=== PATIENT | male | born 2000 | race Caucasian/White ===

== ENCOUNTER 2024-10-27 22:22 | Emergency (ER) | payer OTHER, SELFPAY ==
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
[2024-10-27 22:24] VITALS: BP 172/100; PULSE 106; RESP 20; TEMP 36.7; O2SAT 99
--- NOTE | 2024-10-27 23:20 | ED_ITS ---
HPI - Extremity Injury (Lower) General Chief Complaint: Extremity Injury, Lower Stated Complaint: LLE INJURY S/P BEING STOMPED ON BY A BULL Source: patient Mode of arrival: EMS Limitations: no limitations History of Present Illness HPI Narrative: Patient is a 24-year-old male who presents the ED via EMS with report of left calf pain. Patient reports he was at a [facility] and was stepped on by a bull on his left calf. Complains of severe pain to his left calf. Worse with any movement. Has been unable to ambulate. Denies any other injuries from the incident. Denies head injury or LOC. Denies chest or abdominal pain. Denies numbness. Related Data Allergies Allergy/AdvReac Type Severity Reaction Status Date / Time prednisone Allergy Severe Unknown Verified 10/28/24 00:11 nickel Allergy Unknown Unknown Verified 10/28/24 00:11 Review of Systems 2 Review of Systems: All systems reviewed & are unremarkable except as noted in HPI. All systems reviewed & are unremarkable except as noted in HPI and below Exam 2 Narrative: GENERAL: Mildly uncomfortable appearing, obese with BMI of 33.3, non-toxic, in no acute distress. HEAD: Normocephalic, atraumatic. RESPIRATORY: Airway patent, respirations nonlabored. CARDIOVASCULAR: Regular rate and rhythm. DP / PT pulses are strong and easily palpable. MUSCULOSKELETAL: Moves all extremities. No gross deformities. Decreased range of motion of left ankle dorsiflexion due to pain, but patient is able to perform the testing. Contusion/bruising/swelling with very minor superficial abrasions to left medial calf with significant focal tenderness. Compartments are soft. Negative Camejo sign. Achilles tendon is intact. Minimal tenderness along proximal aspect of Achilles tendon. Sensation is intact throughout left lower extremity. Normal temperature and color of foot, ankle, calf, lower extremity. Capillary refill intact SKIN: Warm, dry, normal color. NEURO: A&O X3. Speech clear. No ataxic movements. PSYCHIATRIC: Appropriate mood and affect. Normal interaction. Course Vital Signs Vital signs: Vital Signs Temperature 98.1 F 10/27/24 22:24 Pulse Rate 106 H 10/27/24 22:24 Respiratory Rate 20 10/27/24 22:24 Blood Pressure 172/100 H 10/27/24 22:24 Pulse Oximetry 99 10/27/24 22:24 Oxygen Delivery Room Air 10/27/24 22:24 Temperature 98.1 F 10/27/24 22:24 Pulse Rate 91 10/28/24 02:15 Respiratory Rate 18 10/28/24 02:15 Blood Pressure 150/88 H 10/28/24 02:15 Pulse Oximetry 100 10/28/24 02:15 Oxygen Delivery Room Air 10/27/24 22:24 MDM - Extremity Injury (Lower) MDM Narrative Medical decision making narrative: Patient presented to calf pain s/p injury from bull stepping on calf. No other injuries. Vital signs are stable upon arrival. Patient is neurovascularly intact. No signs of neurologic or vascular compromise on physical examination. He has very strong pedal pulses. There is normal temperature, color, and sensation of leg. Compartments are soft without signs of compartment syndrome. Calf is very bruised and focally tender, but the compartments are not taut or firm. Achilles tendon is intact. CTA of LLE was obtained to r/o actively bleeding hematoma vs fx. CTA without evidence of active bleeding or fracture. Did comment that the distal-most peroneal artery was not well visualized. It could be occlusion verses artifact of contrast phase. I have very low suspicion for arterial occlusion at this time. Patient has excellent pulses. Again, normal color, temperature, sensation of left lower extremity. He does not have any footdrop. Does not otherwise have any significant RFs for atherosclerotic disease. Exam is most consistent with significant medial calf contusion/strain. Patient is felt to be stable for discharge home and further outpatient management and treatment. Placed in TRAN bandage, given crutches. Will prescribe pain medication for home. Will refer to orthopedics for further evaluation if needed. Discussed rice therapy and strict return precautions. Patient voiced understanding. Discharged in stable condition. Medical Records Attestation: I reviewed the patient's medical records. Lab Data Attestation: I reviewed the patient's lab results. 10/27/24 23:48 10/27/24 23:48 Labs: Lab Results 10/27/24 Range/Units 23:48 WBC 10.7 H (4.5-10.0) K/mm3 RBC 5.08 (4.6-6.20) M/mm3 Hgb 16.0 (14.0-18.0) g/dL Hct 45.7 (42.0-52.0) % MCV 90.0 (80-100) fl MCH 31.5 (26-34) pg MCHC 35.0 (32-36) g/dl RDW 13.1 (11.5-14.5) % Plt Count 264 (150-375) k/mm3 MPV 9.2 (7.4-10.4) fl Immature Gran % (Auto) 0.7 H (0-0.5) % Neut % (Auto) 58.1 (45.5-73.1) % Lymph % (Auto) 27.8 (18.3-44.2) % [place] % (Auto) 9.6 H (2.6-8.5) % Eos % (Auto) 2.6 (0-4.4) % Baso % (Auto) 1.2 (0.2-1.2) % Lymph # (Auto) 2.96 (0.9-3.2) K/mm3 [place] # (Auto) 1.0 H (0.1-0.6) K/mm3 Eos # (Auto) 0.3 (0-0.3) K/mm3 Baso # (Auto) 0.1 (0.0-0.1) K/mm3 Abs Immat Gran (auto) 0.07 H (0.00-0.031) K/mm3 Absolute Neuts (auto) 6.2 (1.3-6.7) K/mm3 Absolute Nucleated RBC 0.000 (0.0-0.012) K/mm3 Nucleated RBC % 0.0 (0.0-0.2) % PT 13.1 (11.1-14.7) Seconds INR 1.0 APTT 26.1 (22.3-36.8) Seconds Sodium 135 L (137-145) mmol/L Potassium 3.9 (3.4-5.0) mmol/L Chloride 99 (98-107) mmol/L Carbon Dioxide 26 (22-30) mmol/L Anion Gap 10 (4-12) mmol/L BUN 14 (9-20) mg/dL Creatinine 0.92 (0.7-1.3) mg/dL Estim Creat Clear Calc 136 ml/min Estimated GFR > 60 (59 - ) Glucose 97 (65-110) mg/dL Calcium 9.4 (8.4-10.2) mg/dL Imaging Data Attestation: I personally reviewed and interpreted this imaging study as follows: Radiologist's impression: STAT RAD CTA LLE: Impression: Distal most peroneal artery is not visualized (series 3, images [id number]). This could represent occlusion or artifact of contrast phase. Left lower extremity arteries appear otherwise normal. No active bleeding or extravasation within the soft tissues of lower extremity. No acute fractures. No incidental findings. Discharge Plan Discharge Clinical Impression: Contusion of left calf, Injury caused by animal Patient Disposition: Home Condition: Stable Instructions: Antibiotic Form, Muscle Strain (ED), P.R.I.C.E. Treatment (ED), Hematoma (ED) Additional Instructions: You are going to be very sore for the next several days to weeks. Use crutches for assistance with ambulation. Recommend frequent icing to calf, elevation of leg. Recommend Tylenol and ibuprofen around the clock as needed for pain. You may take up to 600 mg of ibuprofen and 1000 mg of Tylenol every 6 hours. [place] as needed for more severe pain. This does also contain Tylenol, so use caution with dosing. Recommend follow-up with orthopedics for further evaluation if needed. Return to the ED for new or worsening concerns, severe pain or swelling in legs, decreased sensation throughout leg, color or temperature changes throughout your leg, or any other symptoms of concern. Patient Language: Guyanese Prescriptions: New hydrocodone-acetaminophen 5-325 mg tablet 1 tablet PO Q6H PRN (Reason: pain) Qty: 10 0RF Follow-up/Referrals: Rohit Michaels MD [Physician] - (ORTHOPEDICS) UNKNOWN,DOCTOR [Primary Care Provider] - Time of Disposition: 01:50
--- OUTSIDE RECORDS SUMMARY | 2024-10-27 23:32 | XMS_ITS | Clinical Summary ---
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 Name Role Phone Identified, No Provider Primary Care Provider Un available Allergies Active Allergy Reactions Criticality Noted Date Comments Nickel Anaphylaxis High 10/01/2024 Encounters Date Type Department Care Team Description 10/01/2024 7:50 AM CDT - 10/01/2024 10:13 AM CDT Emergency [facility] Emergency Department [address] [place] [address] Toi Pedroza MD Foreign body of right eye, initial encounter (Primary Dx) Discharge Disposition: Discharged to Home or Self Care from Last 3 Months Social History Tobacco Use Types Packs/Day Years Used Date Smoking Tobacco: Never Assessed Sex and Gender Information Value Date Recorded Sex Assigned at Not on file Legal Sex Male 6:47 PM [employer] Gender Identity Not on file Sexual Orientation Not on file Last Filed Vital Signs Vital Sign Reading Time Taken Comments Blood Pressure 155/79 10/01/2024 7:28 AM CDT Pulse 83 10/01/2024 10:11 AM CDT Temperature 36.7 C (98.1 F) 10/01/2024 7:28 AM CDT Respiratory Rate 16 10/01/2024 10:1 1 AM CDT Oxygen Saturation 99% 10/01/2024 10: 11 AM CDT Inhaled Oxygen Concentration - - Weight 105.6 kg (232 lb 12.9 oz) 10/01/2024 7:27 AM CDT Height 177.8 cm (5' 10) 10/01/2024 7:31 AM CDT Body Mass Index 33.4 10/01/2024 7:27 AM CDT Plan of Treatment Not on file Insurance [employer] Care Teams Molding Machine Tender Relationship Specialty Start Date End Date Identified, No Provider PCP - General 10/01/24
--- OUTSIDE RECORDS SUMMARY | 2024-10-27 23:32 | XMS_ITS | Continuity of Care Document ---
Author Organization [facility] Address [address] [place] [id number] Phone Care Team Providers Care Muck Boss Name Role Phone Ramila YORK, Clarice Unavailable Unavailable Allergies, Adverse Reactions, Alerts Substance Reaction Status Criticality nickel Hives / Skin Rash(severe) Active Lo w Medications Medication Instructions Dosage Effective Dates (start - stop) Status Comments ofloxacin 0.3 % eye drops Instill 1 drop QID OD until advised otherwise. - Active Procedures Procedure Date REMOVE FOREIGN BODY CORNEAL, EMBEDDED Ju EYE EXAM NEW PATIENT Advance Directives Directive Yes / No Effective Date File Name No Information Encounters Encounter Description Practice Location Reason(s) For Visit Diagnoses Date Provider Providers Copied on Encounter [facility], [facility], [address] [place] [address], [id number], [place] tel:[phone] [facility] FBS OD (chief complaint) Foreign body in cornea, right eye, initial encounter Ramila Oneil. [address] [place] [address], [id number], [place]. tel:[phone] Referring Provider: Clarice Chakraborty, [address] [place] [address], [id number]. tel:[phone] Family History Family Member Type Diagnosis Age At Onset Problem No family history of Diabete s mellitus Problem No family history of Hyperte nsion Problem No family history of Catarac ts Problem No family history of Glaucom a Problem No family history of Macular degeneration Payers Payer name Insurance type Covered green party ID Authoriza tion(s) Hernandez [facility] [id number] Social History Type Description Quantity Date Captured Comments Alcohol Use Details Unknown Caffeine Use Details Unknown Tobacco Use Status User of moist powder ed tobacco Smoking Status Unknown if ever smoked Non-Smoking Tobacco Use Details Smokeless: No Details Available Smokeless: No Details Available Sex Male Chief Complaint And Reason For Visit From encounter dated '10/01/2024 15:15'. FBS OD (chief complaint). Description: The 24 year old patient presents for FBS OD referred by [facility] ER. Pt reports that on 09/28/24 OD started feeling painful and red. Pt reports the next morning OD became extremely swollen and painful. Pt went to [facility] and received a numb gtts today but pain is still extreme OD that it was hard to sleep." Pt reports that the ER said they saw something like metal in OD and referred him here. Pt reports that vision OU is good, stable and constant [facility]. Pt is not usingany eye meds. Reason For Referral Reason For Referral No Information Plan Of Treatment Date Type Action Status Goal Tobacco cessation counseling completed History Of Present Illness Encounter Date Complaint History Of Prese nt Illness FBS OD The 24 year old patient presents for FBS OD referred by [facility]. Pt reports that on 09/28/24 OD started feeling painful and red. Pt reports the next morning OD became "extremely swollen and painful. Pt went to [facility] and received a numb gtts today but pain is still extreme OD that it was hard to sleep. Pt reports that the ER said "they saw something like metal in OD and referred him here. Pt reports that vision OU is good, stable and constant D & N sc. Pt is not using any eye meds. Functional Status Date Functional Assessmen t No Information Instructions Date Instruction Additional Infor jc Impression/Plan Assessments Type Assessment Date assessment Foreign body in cornea, right ey e, initial encounter Patient Care Teams Name Effective Dates (start - stop) Status Members No Information
--- OUTSIDE RECORDS SUMMARY | 2024-10-27 23:32 | XMS_ITS | Clinical Summary ---
Author Organization [facility] Address [address] [place] [address] Phone Care Team Providers Care Home Economics Expert Name Role Phone Provider, None Primary Care Provider Unavailabl e Allergies Active Allergy Reactions Criticality Noted Date Comments Prednisone Other (see Comments) 08/22/2024 Pt states after 1 day of taking prednisone it makes him not be able to think right has happened before can't concentrate Medications diphenhydrAMINE (BENADRYL) 25 MG Capsule Take 1-2 Capsules by mouth every 6 hours as needed for Itching or Other (facial itching/swelling /hives). 20 Capsule 4 Active Additional Information Patient not taking.Reported on 08/21/2024 cyclobenzaprine (FLEXERIL) 10 MG Tablet Take 1 Tablet by mouth 3 times daily as needed for Muscle spasms. 25 Tablet 5 Active ibuprofen (MOTRIN) 600 MG Tablet Take 1 Tablet by mouth every 6 hours as needed for Mild or more severe pain or Moderate or more severe pain. 30 Tablet 5 Active Active Problems Problem Noted Date Diagnosed Date Coccyx pain 10/24/2024 Sprain of right knee 08/13/2018 ADHD (attention deficit hyperactivity disorder) 04/05/2013 Encounters Date Type Department Care Team Description 10/24/2024 11:21 AM CDT - 10/24/2024 11:57 AM CDT Emergency [facility] Emergency [address] [place] [address] Coccyx pain Discharge Disposition: Discharged to home or Selfcare 10/24/2024 Travel 10/10/2024 10:49 PM CDT - 10/11/2024 1:53 AM CDT [facility] [address] [place] [address] Michael Toney MD Contusion of left lower extremity, initial encounter Discharge Disposition: Discharged to home or Selfcare 10/10/2024 Travel 09/02/2024 7:17 PM CDT - 09/02/2024 8:58 PM CDT [facility] [address] [place] [address] Adrienne Rodriguez MD Sprain of ribs Discharge Disposition: Discharged to home or Selfcare 09/02/2024 Travel 08/22/2024 Telephone [facility] [place] [facility] [address] [place] [address] Jamaal Montalvo APRN, DISTRIBUTION SPECIALIST Medication Problem 08/22/2024 [facility]phone [facility] [address] [place] [id number] Provider, None Medication Management 08/21/2024 5:10 PM CDT Urgent Care Visit [facility] [place] [facility] [address] [place] [address] Jamaal Montalvo APRN, DISTRIBUTION SPECIALIST Rhus dermatitis (Primary Dx) Discharge Disposition: Discharged to home or Selfcare 08/21/2024 Travel from Last 3 Months Immunizations Immunization Administration Dates Next Due DTAP VACCINE 10/08/2009, 7,08/14/2002,02/27,2000,2000 HIB Vaccine (PRP-T) 06/24/2010,06/01/2001,2000 Hepatitis A Vaccine 10/20/2010,01/27/2010 Hepatitis B Vaccine 06/01/2001,2000,2000 Human Papillomavirus Vaccine (HPV), quadrivalent 09/26/2012 Inactivated Polio Vaccine 10/08/2009,09/2006,06/01/2001,10/21,2000 MMR Vaccine 10/08/2009,11/01/2006,06/01/2001 Meningococcal MCV4O 01/28/2017 Meningococcal Vaccine 09/26/2012 TDAP Vaccine 09/26/2012 VFC FLU 3+ YEARS IM 04/05/2013 VFC FLU 3+ YRS PRES FREE QUAD IM 12/23/2014,02/25 VFC HPV VACCINE, QUADRIVALENT 02/22/2014, 014 Varicella Vaccine Live 10/08/2009,11/01/2006, Family History Medical History Relation Name Comments Cancer Maternal Aunt Cancer Paternal Aunt Diabetes Paternal Aunt Cancer Paternal Uncle Diabetes Paternal Uncle Relation Name Status Comments Maternal Aunt Paternal Aunt Paternal Uncle Social History Tobacco Use Types Packs/Day Years Used Date Smoking Tobacco: Some Days Cigarettes Smokeless Tobacco: Former Chew Tobacco Cessation:Ready to Q uit: Not Asked; Counseling Given: Not Answered Comments:would like to quit Alcohol Use Standard Drinks/Week Comments Yes 0 (1 standard drink = 0.6 oz pur e alcohol) daily beer PHQ-2 Answer Date Recorded PHQ-2 Score 21 02/28/2019 Sexually Active Control Partners Comments Not Currently Sex and Gender Information Value Date Recorded Sex Assigned at Male 10/10/2024 11:01 PM CDT 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 Gender Identity Male 10/10/2024 11:01 PM CDT Sexual Orientation Not on file Last Filed Vital Signs Vital Sign Reading Time Taken Comments Blood Pressure 131/90 10/24/2024 11:13 AM CDT Pulse 90 10/24/2024 11:13 AM CDT Temperature 37 C (98.6 F) 10/24/2024 11:13 AM CDT Respiratory Rate 18 10/24/2024 11:13 AM CDT Oxygen Saturation 98% 10/24/2024 11:13 AM CDT Inhaled Oxygen Concentration - - Weight 104.3 kg (230 lb) 10/24/2024 11:13 AM CDT Height 177.8 cm (5' 10) 10/24/2024 11:13 AM CDT Body Mass Index 33 10/24/2024 11:13 AM CDT Plan of Treatment Health Maintenance Due Date Last Done Comments Hepatitis C Virus (HCV) Screening 2000 Pneumococcal Immunization Combined (1 of 2 - PCV) 2019 DTaP/Tdap/Td Immunization (7 - Td or Tdap) 09/26/2022 09/26/2012, 10/08/2009, 11/01/2006, Additional history exists SARS-COV-2 Immunization ( season) 2023 Influenza Immunization (#1) 11/26/202411/27, 03/15/2014, 04/05/2013 Respiratory Syncytial Virus (RSV) Immunization (Adult) (1 - 1-dose 75+ series) 2075 Hepatitis B Immunization Completed 002, 2000, 2000 Human Papillomavirus (HPV) Immunization Completed 02/22/2014, 10/23/2013, 09/26/2012 Meningococcal Immunization (ACWY) Completed 01/28/2017, 09/26/2012 Rotavirus Immunization Aged Out No lo nger eligible based on patient's age to complete this topic Medical Devices Implanted Type Area Bus Matron Device Identifier Shelf Expiration Date Model / Serial / Lot One-Third Tubular Plate 7h - [id number] Implanted:Qty: 1 on 07/30/2013 by Dickson Rios DO at [facility] IMPLANT Left: Clavicle [employer] [id number] [id number] / / N/A Screw Cortical Self-Tapping Small Hex 2. - [id number] Implanted:Qty: 5 on 07/30/2013 by Dickson Rios DO at [facility] IMPLANT [employer] [id number] 2 / NA Screw Bone Cortical Self Tapping Small H - [id number] Implanted:Qty: 1 on 07/30/2013 by [facility] DO at [facility] IMPLANT Left: Clavicle [employer] [id number] / / NA Procedures Procedure Name Priority Date/Time Associated Diagnosis Comments XR ANKLE 3 OR MORE VIEWS LEFT STAT 10/11/2024 12:07 AM CDT XR HIP 2-3 VIEWS W/PELVIS UNILATERAL LEFT STAT 10/11/2024 12:06 AM CDT XR TIBIA & FIBULA LEFT STAT 10/11/2024 12:06 AM CDT XR KNEE MINIMUM 4 VIEWS LEFT STAT 10/11/2024 12:[address] HEAD OR BRAIN WO CONTRAST Stat with Interpretation 09/02/2024 7:[address] CERVICAL SPINE WO/ CONTRAST Stat with Interpretation 09/02/2024 7:[address] CHEST ABDOMEN AND PELVIS W CONTRAST Stat with Interpretation 09/02/2024 7:55 PM CDT CRITICAL CARE STAT 09/02/2024 7:29 PM CDT CBC WITH AUTO DIFFERENTIAL STAT 09/02/2024 7:27 PM CDT CMP (COMPREHENSIVE METABOLIC PANEL) STAT 09/02/2024 7:27 PM CDT COMPLETE BLOOD COUNT (CBC) WITH DIFF STAT 09/02/2024 7:27 PM CDT from Last 3 Months Results * XR ANKLE 3 OR MORE VIEWS LEFT (10/11/2024 12:07 AM CDT) Anatomical Region Laterality Modality LOWER EXTREMITY, ankle Left Digital R adiography 10/10/2024 11:4 7 PM CDT Impressions 10/11/2024 6:53 AM CDT IMPRESSION: No acute osseous findings. The preliminary report and any related communication were provided by [facility] After Hours service, as documented in the medical record. Narrative 10/11/2024 6:53 AM CDT DICTATING PHYSICIAN: Sid Ely M.D., [facility] EXAM: XR HIP 2-3 VIEWS W/PELVIS UNILATERAL LEFT, XR ANKLE 3 OR MORE VIEWS LEFT, XR TIBIA & FIBULA LEFT, XR KNEE MINIMUM 4 VIEWS LEFT 10/10/2024 11:46 PM Patient : 2000 Age: 24 years Gender: Male Number of images: 13 INDICATION: Left leg stepped on by a bull COMPARISON: None FINDINGS: The bones appear to be in anatomic alignment. No fracture is identified. No dislocation is seen. Procedure Note Sid Ramirez MD - 10/11/2024 DICTATING PHYSICIAN: iSd Ely M.D., [facility] EXAM: XR HIP 2-3 VIEWS W/PELVIS UNILATERAL LEFT, XR ANKLE 3 OR MORE VIEWSLEFT, XR TIBIA & FIBULA LEFT, XR KNEE MINIMUM 4 VIEWS LEFT 10/10/2024 11:46PM Patient : 2000 Age: 24 years Gender: Male Number of images: 13 INDICATION: Left leg stepped on by a bull COMPARISON: None FINDINGS: The bones appear to be in anatomic alignment. No fracture is identified. No dislocation is seen. IMPRESSION: No acute osseous findings. The preliminary report and any related communication [facility], as documented in the medical record. Michael Toney MD IM DIAGNOSTIC ORDERABLES Final Result * XR HIP 2-3 VIEWS W/PELVIS UNILATERAL LEFT (10/11/2024 12:06 AM CDT) Anatomical Region Laterality Modality LOWER EXTREMITY, hip, Pelvis Left Dig ital Radiography 10/10/2024 11:4 6 PM CDT Impressions 10/11/2024 6:53 AM CDT IMPRESSION: No acute osseous findings. The preliminary report and any related communication were provided by [facility] After Hours service, as documented in the medical record. Narrative 10/11/2024 6:53 AM CDT DICTATING PHYSICIAN: Sid Ely M.D., [facility] EXAM: XR HIP 2-3 VIEWS W/PELVIS UNILATERAL LEFT, XR ANKLE 3 OR MORE VIEWS LEFT, XR TIBIA & FIBULA LEFT, XR KNEE MINIMUM 4 VIEWS LEFT 10/10/2024 11:46 PM Patient : 2000 Age: 24 years Gender: Male Number of images: 13 INDICATION: Left leg stepped on by a bull COMPARISON: None FINDINGS: The bones appear to be in anatomic alignment. No fracture is identified. No dislocation is seen. Procedure Note Sid Ramirez MD - 10/11/2024 DICTATING PHYSICIAN: Sid [facility]ly M.D., [facility] EXAM: XR HIP 2-3 VIEWS W/PELVIS UNILATERAL LEFT, XR ANKLE 3 OR MORE VIEWSLEFT, XR TIBIA & FIBULA LEFT, XR KNEE MINIMUM 4 VIEWS LEFT 10/10/2024 11:46PM Patient : 2000 Age: 24 years Gender: Male Number of images: 13 INDICATION: Left leg stepped on by a bull COMPARISON: None FINDINGS: The bones appear to be in anatomic alignment. No fracture is identified. No dislocation is seen. IMPRESSION: No acute osseous findings. The preliminary report and any related communication [facility], as documented in the medical record. Michael Toney MD IMG DIAGNOSTIC ORDERABLES Final Result * XR TIBIA & FIBULA LEFT (10/11/2024 12:06 AM CDT) Anatomical Region Laterality Modality LOWER EXTREMITY, leg Left Digital Rad iography 10/10/2024 11:4 6 PM CDT Impressions 10/11/2024 6:53 AM CDT IMPRESSION: No acute osseous findings. The preliminary report and any related communication were [facility], as documented in the medical record. Narrative 10/11/2024 6:53 AM CDT DICTATING PHYSICIAN: Sid Ely M.D., [facility] EXAM: XR HIP 2-3 VIEWS W/PELVIS UNILATERAL LEFT, XR ANKLE 3 OR MORE VIEWS LEFT, XR TIBIA & FIBULA LEFT, XR KNEE MINIMUM 4 VIEWS LEFT 10/10/2024 11:46 PM Patient : 2000 Age: 24 years Gender: Male Number of images: 13 INDICATION: Left leg stepped on by a bull COMPARISON: None FINDINGS: The bones appear to be in anatomic alignment. No fracture is identified. No dislocation is seen. Procedure Note Sid Ramirez MD - 10/11/2024 DICTATING PHYSICIAN: Sid Ely M.D., [facility] EXAM: XR HIP 2-3 VIEWS W/PELVIS UNILATERAL LEFT, XR ANKLE 3 OR MORE VIEWSLEFT, XR TIBIA & FIBULA LEFT, XR KNEE MINIMUM 4 VIEWS LEFT 10/10/2024 11:46PM Patient : 2000 Age: 24 years Gender: Male Number of images: 13 INDICATION: Left leg stepped on by a bull COMPARISON: None FINDINGS: The bones appear to be in anatomic alignment. No fracture is identified. No dislocation is seen. IMPRESSION: No acute osseous findings. The preliminary report and any related communication [facility], as documented in the medical record. Michael Toney MD IM DIAGNOSTIC ORDERABLES Final Result * XR KNEE MINIMUM 4 VIEWS LEFT (10/11/2024 12:05 AM CDT) Anatomical Region Laterality Modality LOWER EXTREMITY, knee Left Digital Ra diography 10/10/2024 11:4 5 PM CDT Impressions 10/11/2024 6:53 AM CDT IMPRESSION: No acute osseous findings. The preliminary report and any related communication were provided by [facility] After Hours service, as documented in the medical record. Narrative 10/11/2024 6:53 AM CDT DICTATING PHYSICIAN: Sid Ely M.D., [facility] EXAM: XR HIP 2-3 VIEWS W/PELVIS UNILATERAL LEFT, XR ANKLE 3 OR MORE VIEWS LEFT, XR TIBIA & FIBULA LEFT, XR KNEE MINIMUM 4 VIEWS LEFT 10/10/2024 11:46 PM Patient : 2000 Age: 24 years Gender: Male Number of images: 13 INDICATION: Left leg stepped on by a bull COMPARISON: None FINDINGS: The bones appear to be in anatomic alignment. No fracture is identified. No dislocation is seen. Procedure Note Sid Ramirez MD - 10/11/2024 DICTATING PHYSICIAN: Sid Ely M.D., [facility] EXAM: XR HIP 2-3 VIEWS W/PELVIS UNILATERAL LEFT, XR ANKLE 3 OR MORE VIEWSLEFT, XR TIBIA & FIBULA LEFT, XR KNEE MINIMUM 4 VIEWS LEFT 10/10/2024 11:46PM Patient : 2000 Age: 24 years Gender: Male Number of images: 13 INDICATION: Left leg stepped on by a bull COMPARISON: None FINDINGS: The bones appear to be in anatomic alignment. No fracture is identified. No dislocation is seen. IMPRESSION: No acute osseous findings. The preliminary report and any related communication [facility], as documented in the medical record. Michael Toney MD IMG DIAGNOSTIC ORDERABLES Final Result * CT HEAD OR BRAIN WO CONTRAST (09/02/2024 7:56 PM CDT) Anatomical Region Laterality Modality Head N/A Computed Tomogra phy 09/02/2024 7:35 PM CDT Impressions 09/02/2024 11:09 PM CDT IMPRESSION: CT head: 1. No CT evidence of acute intracranial abnormality. CT cervical spine: 1. No acute fracture or traumatic malalignment of the cervical spine. 2. Right mandibular second molar dental caries. Recommend nonemergent dental evaluation. The preliminary report and any related communication were provided by [facility] After Hours service through [facility], as documented in the medical record. Narrative 09/02/2024 11:09 PM CDT DICTATING PHYSICIAN: Clement Marlow M.D. EXAM: CT HEAD OR BRAIN WO CONTRAST, 09/02/2024 7:35 PM COMPARISON: CT head 09/29/2023. CT cervical spine 10/14/2018. INDICATION: Fall. Head/neck trauma. Neck pain6. PROCEDURE: CT images were obtained of the head and cervical spine without intravenous contrast. Image reconstruction in the sagittal and coronal planes was performed. Radiation dose reduction technique(s) were used. Total DLP (mGy-cm): 1491.48. FINDINGS: HEAD: Brain: The bullock-white matter differentiation appears preserved. No acute intra- axial hemorrhage. No significant mass effect. Ventricles and extra-axial spaces: The ventricles are normal in size and configuration for age. The basal cisterns are patent. No extra-axial fluid collection. Orbits: Unremarkable. Paranasal sinuses: Clear. Middle ear and mastoid air cells: Clear. Bones: No acute abnormality. Soft tissues: Unremarkable. Additional findings: None. CERVICAL SPINE: Alignment: Straightening of the normal cervical lordosis, likely positional. Bones: Vertebral body heights are preserved. No acute fracture. Segmental analysis: Intervertebral disc heights are relatively well-maintained. No significant osseous spinal canal or neural foraminal stenosis. Soft tissues: Unremarkable. Visualized chest: Unremarkable. Additional findings: Dental caries of the right mandibular second molar. Procedure Note Clement Marlow MD - 09/02/2024 DICTATING PHYSICIAN: Clement Marlow M.D. EXAM: CT HEAD OR BRAIN WO CONTRAST, 09/02/2024 7:35 PM COMPARISON: CT head 09/29/2023. CT cervical spine 10/14/2018. INDICATION: Fall. Head/neck trauma. Neck pain6. PROCEDURE: CT images were obtained of the head and cervical spine withoutintravenous contrast. Image reconstruction in the sagittal and coronalplanes was performed. Radiation dose reduction technique(s) were used.Total DLP (mGy-cm): 1491.48. FINDINGS: HEAD: Brain: The bullock-white matter differentiation appears preserved. No acuteintra- axial hemorrhage. No significant mass effect. Ventricles and extra-axial spaces: The ventricles are normal in size andconfiguration for age. The basal cisterns are patent. No extra-axial fluidcollection. Orbits: Unremarkable. Paranasal sinuses: Clear. Middle ear and mastoid air cells: Clear. Bones: No acute abnormality. Soft tissues: Unremarkable. Additional findings: None. CERVICAL SPINE: Alignment: Straightening of the normal cervical lordosis, likelypositional. Bones: Vertebral body heights are preserved. No acute fracture. Segmental analysis: Intervertebral disc heights are relativelywell-maintained. No significant osseous spinal canal or neural foraminalstenosis. Soft tissues: Unremarkable. Visualized chest: Unremarkable. Additional findings: Dental caries of the right mandibular second molar. IMPRESSION: CT head: 1. No CT evidence of acute intracranial abnormality. CT cervical spine: 1. No acute fracture or traumatic malalignment of the cervical spine. 2. Right mandibular second molar dental caries. Recommend nonemergentdental evaluation. The preliminary report and any related communication were [facility] through [facility], as documented in themedical record. Betty Triplett Dubois METER SHOP SUPERINTENDENT, DISTRIBUTION SPECIALIST IMG CT ORDERABLES Final Result * CT CERVICAL SPINE WO/ CONTRAST (09/02/2024 7:56 PM CDT) Anatomical Region Laterality Modality Spine N/A Computed Tomogra phy 09/02/2024 7:35 PM CDT Impressions 09/02/2024 11:10 PM CDT IMPRESSION: CT head: 1. No CT evidence of acute intracranial abnormality. CT cervical spine: 1. No acute fracture or traumatic malalignment of the cervical spine. 2. Right mandibular second molar dental caries. Recommend nonemergent dental evaluation. The preliminary report and any related communication were provided by [facility] After Hours service through [facility], as documented in the medical record. Narrative 09/02/2024 11:10 PM CDT DICTATING PHYSICIAN: Clement Marlow M.D. EXAMINATION: CT CERVICAL SPINE WO/ CONTRAST, 09/02/2024 7:35 PM COMPARISON: CT head 09/29/2023. CT cervical spine 10/14/2018. INDICATION: Fall. Head/neck trauma. Neck pain6. PROCEDURE: CT images were obtained of the head and cervical spine without intravenous contrast. Image reconstruction in the sagittal and coronal planes was performed. Radiation dose reduction technique(s) were used. Total DLP (mGy-cm): 1491.48. FINDINGS: HEAD: Brain: The bullock-white matter differentiation appears preserved. No acute intra- axial hemorrhage. No significant mass effect. Ventricles and extra-axial spaces: The ventricles are normal in size and configuration for age. The basal cisterns are patent. No extra-axial fluid collection. Orbits: Unremarkable. Paranasal sinuses: Clear. Middle ear and mastoid air cells: Clear. Bones: No acute abnormality. Soft tissues: Unremarkable. Additional findings: None. CERVICAL SPINE: Alignment: Straightening of the normal cervical lordosis, likely positional. Bones: Vertebral body heights are preserved. No acute fracture. Segmental analysis: Intervertebral disc heights are relatively well-maintained. No significant osseous spinal canal or neural foraminal stenosis. Soft tissues: Unremarkable. Visualized chest: Unremarkable. Additional findings: Dental caries of the right mandibular second molar. Procedure Note Clement Marlow MD - 09/02/2024 DICTATING PHYSICIAN: Clement Marlow M.D. EXAMINATION: CT CERVICAL SPINE WO/ CONTRAST, 09/02/2024 7:35 PM COMPARISON: CT head 09/29/2023. CT cervical spine 10/14/2018. INDICATION: Fall. Head/neck trauma. Neck pain6. PROCEDURE: CT images were obtained of the head and cervical spine withoutintravenous contrast. Image reconstruction in the sagittal and coronalplanes was performed. Radiation dose reduction technique(s) were used.Total DLP (mGy-cm): 1491.48. FINDINGS: HEAD: Brain: The bullock-white matter differentiation appears preserved. No acuteintra- axial hemorrhage. No significant mass effect. Ventricles and extra-axial spaces: The ventricles are normal in size andconfiguration for age. The basal cisterns are patent. No extra-axial fluidcollection. Orbits: Unremarkable. Paranasal sinuses: Clear. Middle ear and mastoid air cells: Clear. Bones: No acute abnormality. Soft tissues: Unremarkable. Additional findings: None. CERVICAL SPINE: Alignment: Straightening of the normal cervical lordosis, likelypositional. Bones: Vertebral body heights are preserved. No acute fracture. Segmental analysis: Intervertebral disc heights are relativelywell-maintained. No significant osseous spinal canal or neural foraminalstenosis. Soft tissues: Unremarkable. Visualized chest: Unremarkable. Additional findings: Dental caries of the right mandibular second molar. IMPRESSION: CT head: 1. No CT evidence of acute intracranial abnormality. CT cervical spine: 1. No acute fracture or traumatic malalignment of the cervical spine. 2. Right mandibular second molar dental caries. Recommend nonemergentdental evaluation. The preliminary report and any related communication were [facility] through [facility], as documented in themedical record. us Betty Dubois METER SHOP SUPERINTENDENT, DISTRIBUTION SPECIALIST IMG CT ORDERABLES Final Result * CT CHEST ABDOMEN AND PELVIS W CONTRAST (09/02/2024 7:55 PM CDT) Anatomical Region Laterality Modality Chest, Abdomen, Pelvis N/A Computed Tomography 09/02/2024 7:35 PM CDT Impressions 09/03/2024 10:05 AM CDT IMPRESSION: 1. No acute solid organ injury. 2. No acute fractures. 3. No pneumothorax. Narrative 09/03/2024 10:[address] CHEST ABDOMEN AND PELVIS W CONTRAST: 09/02/2024 7:35 PM DICTATING PHYSICIAN: KEITH GOFF [facility]. 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 TECHNIQUE: Multiple helical axial images were obtained through the chest, abdomen and pelvis with contrast. Multiplanar reformats were performed. Dose reduction technique(s): CT dose reduction techniques used. Exam performed using one or more of the following dose reduction techniques: Automated exposure control, adjustment MA and/or AV according to patient size, and/or use of the iterative reconstruction. IV CONTRAST TYPE AND VOLUME: Administered contrast documentation is located within the patient's electronic health record. RADIATION DOSE: DLP 3163.16 mGycm. FINDINGS: Thyroid/base of neck: No acute findings. Pulmonary Arteries: There is adequate opacification with no evidence for central pulmonary embolism. Thoracic aorta: Widely patent, normal course and caliber. Heart: The heart is grossly within normal limits. Pericardium: No fluid or thickening. Lymph nodes: No evidence for pathologic axillary, mediastinal, or hilar lymphadenopathy. Esophagus: Normal. Pleura: No pleural effusion or thickening. Lung parenchyma: The lungs are clear bilaterally with no suspicious nodule or airspace consolidation seen. ABDOMEN: Liver: No focal lesion or intrahepatic bile duct dilatation. Portal venous system is patent. Gallbladder: No evidence for wall thickening or inflammation. Spleen: Within normal limits. No evidence for splenomegaly or focal lesion. Pancreas: No focal lesion or pancreatic ductal dilatation. Adrenal glands: No focal nodule. Kidneys: No focal suspicious lesion or obstructive uropathy evident. Abdominal aorta and IVC: Abdominal aorta is normal in caliber. IVC is grossly normal. Retroperitoneum: Normal Mesentery/Peritoneum: Normal. Stomach and small bowel: Within normal limits. No evidence for obstruction. PELVIS: Free fluid: No free fluid or fluid collection. Reproductive: No acute abnormality. Bladder: Normal contour and wall thickness. Lymphadenopathy: No pathologic lymphadenopathy. Colon: Normal in course and caliber. Appendix: No acute abnormality. Skeletal structures and soft tissues: Age-appropriate degenerative changes. No suspicious osseous lytic or blastic process. No soft tissue abnormality. Left clavicle fixation plate and screws present. Procedure Note Keith Goff MD - 09/03/2024 CT CHEST ABDOMEN AND PELVIS W CONTRAST: 09/02/2024 7:35 PM DICTATING PHYSICIAN: KEITH GOFF [facility]. 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 TECHNIQUE: Multiple helical axial images were obtained through the chest, abdomen andpelvis with contrast. Multiplanar reformats were performed. Dose reduction technique(s): CT dose reduction techniques used. Examperformed using one or more of the following dose reduction techniques:Automated exposure control, adjustment MA and/or AV according to patientsize, and/or use of the iterative reconstruction. IV CONTRAST TYPE AND VOLUME: Administered contrast documentation islocated within the patient's electronic health record. RADIATION DOSE: DLP 3163.16 mGycm. FINDINGS: Thyroid/base of neck: No acute findings. Pulmonary Arteries: There is adequate opacification with no evidence forcentral pulmonary embolism. Thoracic aorta: Widely patent, normal course and caliber. Heart: The heart is grossly within normal limits. Pericardium: No fluid or thickening. Lymph nodes: No evidence for pathologic axillary, mediastinal, or hilarlymphadenopathy. Esophagus: Normal. Pleura: No pleural effusion or thickening. Lung parenchyma: The lungs are clear bilaterally with no suspicious noduleor airspace consolidation seen. ABDOMEN: Liver: No focal lesion or intrahepatic bile duct dilatation. Portal venoussystem is patent. Gallbladder: No evidence for wall thickening or inflammation. Spleen: Within normal limits. No evidence for splenomegaly or focallesion. Pancreas: No focal lesion or pancreatic ductal dilatation. Adrenal glands: No focal nodule. Kidneys: No focal suspicious lesion or obstructive uropathy evident. Abdominal aorta and IVC: Abdominal aorta is normal in caliber. IVC isgrossly normal. Retroperitoneum: Normal Mesentery/Peritoneum: Normal. Stomach and small bowel: Within normal limits. No evidence forobstruction. PELVIS: Free fluid: No free fluid or fluid collection. Reproductive: No acute abnormality. Bladder: Normal contour and wall thickness. Lymphadenopathy: No pathologic lymphadenopathy. Colon: Normal in course and caliber. Appendix: No acute abnormality. Skeletal structures and soft tissues: Age-appropriate degenerativechanges. No suspicious osseous lytic or blastic process. No soft tissueabnormality. Left clavicle fixation plate and screws present. IMPRESSION: 1. No acute solid organ injury. 2. No acute fractures. 3. No pneumothorax. Betty Dubois [employer]ER [employer]OP SUPERINTENDENT, DISTRIBUTION SPECIALIST IMG CT ORDERABLES Final Result * Critical Care (09/02/2024 7:29 PM CDT) Narrative Adrienne Rodriguez MD - 09/02/2024 7:29 PM CDT Adrienne Rodriguez MD 10/03/2024 2:42 AM Critical Care Performed by: Adrienne Rodriguez MD Authorized by: Adrienne Rodriguez MD Critical care provider statement: Critical care time (minutes): 38 Critical care time was exclusive of: Separately billable procedures and treating other patients and teaching time Critical care was necessary to treat or prevent imminent or life-threatening deterioration of the following conditions: Trauma Critical care was time spent personally by me on the following activities: Pulse oximetry, re-evaluation of patient's condition, review of old charts, ordering and review of radiographic studies, discussions with primary provider, evaluation of patient's response to treatment and examination of patient Adrienne Rodriguez MD PROCEDURE/MINOR SURGICAL OR DERABLES Final Result * (ABNORMAL) CBC with Auto Differential (09/02/2024 7:27 PM CDT) WBC 12.77(H) 4.00 - 12.00 10(3)/mcL 09/02/2024 7:33 PM CDT [facility] RBC 5.30 4.40 - 5.80 10(6)/mcL 09/02/2024 7:33 PM CDT [facility] HEMOGLOBIN (HGB) 16.9(H) 13.0 - 16.5 g/dL 09/02/2024 7:33 PM CDT [facility] HEMATOCRIT (HCT) 47.6 38.0 - 50.0 % 09/02/2024 7:33 PM CDT [facility] MCV 89.8 82.0 - 96.0 fL 09/02/2024 7:33 PM CDT [facility] MCH 31.9 26.0 - 32.0 pg 09/02/2024 7:33 PM CDT [facility] MCHC 35.5 31.0 - 36.0 g/dL 09/02/2024 7:33 PM CDT [facility] PLATELET COUNT 298 140 - 440 10(3)/mcL 09/02/2024 7:33 PM CDT [facility] RDW 12.9 11.8 - 15.5 % 09/02/2024 7:33 PM CDT [facility] MPV 9.0 8.0 - 12.6 fL 09/02/2024 7:33 PM CDT [facility] NEUTROPHILS 58.3 40.0 - 68.0 % 09/02/2024 7:33 PM CDT [facility] LYMPHOCYTES 27.3 19.0 - 49.0 % 09/02/2024 7:33 PM CDT [facility] MONOCYTES 11.3 3.0 - 13.0 % 09/02/2024 7:33 PM CDT [facility] EOSINOPHILS 2.2 0.0 - 8.0 % 09/02/2024 7:33 PM CDT [facility] BASOPHILS 0.9 0.0 - 1.0 % 09/02/2024 7:33 PM CDT [facility] ABSOLUTE NEUTROPHILS 7.45(H) 1.40 - 5.30 10(3)/mcL 09/02/2024 7:33 PM CDT [facility] ABSOLUTE LYMPHOCYTES 3.49(H) 0.90 - 3.30 10(3)/mcL 09/02/2024 7:33 PM CDT [facility] ABSOLUTE MONOCYTES 1.44(H) 0.10 - 0.90 10(3)/mcL 09/02/2024 7:33 PM CDT [facility] ABSOLUTE EOSINOPHIL 0.28 0.00 - 0.50 10(3)/mcL 09/02/2024 7:33 PM CDT [facility] ABSOLUTE BASOPHILS 0.11(H) 0.00 - 0.10 10(3)/mcL 09/02/2024 7:33 PM CDT [facility] NRBC PER 100 WBC 0 09/03/19 7:33 PM CDT [facility] Blood Venous Catheter (IV) / Unknown 09/02/2024 7:27 PM CDT 09/02/2024 7:29 PM CDT Betty Dubois [employer] SUPERINTENDENT, DISTRIBUTION SPECIALIST HEMATOLOGY ORDERABLES Fi nal Result [id number] [place] [address], * (ABNORMAL) CMP (09/02/2024 7:27 PM CDT) SODIUM 141 136 - 145 mmol/L 09/02/2024 7:55 PM CDT [facility] POTASSIUM 3.7 3.5 - 5.1 mmol/L 09/02/2024 7:55 PM CDT [facility] CHLORIDE 105 98 - 107 mmol/L 09/02/2024 7:55 PM CDT [facility] CO2, VENOUS 23 22 - 30 mmol/L 09/02/2024 7:55 PM CDT [facility] ANION GAP 13.0 <18.0 mmol/L 09/02/2024 7:55 PM CDT [facility] GLUCOSE 88 70 - 99 mg/dL 09/02/2024 7:55 PM CDT [facility] BUN 13 9 - 21 mg/dL 09/02/2024 7:55 PM CDT [facility] CREATININE, BLOOD 1.13 0.70 - 1.30 mg/dL 09/02/2024 7:55 PM CDT [facility] BUN/CREATININE RATIO 12 12 - 20 ratio 09/02/2024 7:55 PM CDT [facility] TOTAL PROTEIN 8.8(H) 6.0 - 8.0 g/dL 09/02/2024 7:55 PM CDT [facility] ALBUMIN 5.2(H) 3.5 - 5.0 g/dL 09/02/2024 7:55 PM CDT [facility] A/G RATIO 1.4 1.0 - 2.2 09/02/2024 7:55 PM CDT [facility] CALCIUM 9.8 8.7 - 10.5 mg/dL 09/02/2024 7:55 PM CDT [facility] T BILI 0.6 0.2 - 1.2 mg/dL 09/02/2024 7:55 PM CDT [facility] SGOT (AST) 36 <43 U/L 09/02/2024 7:55 PM CDT [facility] SGPT (ALT) 33 <56 U/L 09/02/2024 7:55 PM CDT [facility] ALKALINE PHOSPHATASE 98 40 - 150 U/L 09/02/2024 7:55 PM CDT [facility] GFR, ESTIMATED >60 >=60 09/02/2024 7:55 PM CDT [facility] Comment: Creatinine Clearance is the preferred criteria for selecting drug dose adjustments in renally impaired patients. The GFR is provided as additional pertinent clinical information. GFR is reported in mL/min/1.73 sq m. Calculation based on the Chronic Kidney Disease Epidemiology Collaboration (CKD- EPI) equation refit without adjustment for race. GFR, EST. >60 >=60 025 7:55 PM CDT [facility] GFR, EST. NONAFRICAN >60 >=60 09/02/2024 7:55 PM CDT [facility] Blood Venous Catheter (IV) / Unknown 09/02/2024 7:27 PM CDT 09/02/2024 7:29 PM CDT us Betty Uziel Dubois METER [employer]OP SUPERINTENDENT, DISTRIBUTION SPECIALIST CHEMISTRY ORDERABLES Fin al Result [facility] [address] [place] [address], [place] [phone] from Last 3 Months Insurance MEDICAID [place] * Guarantor: XXX DO NOT USE [facility] [address] Account Type Relation to Patient Date of Phone Billing Address Other Other [address] [place] [address] [facility] MEDICAID SALES [facility] Advance Directives * Full Code (Latest Code Status on File) Date Activated Date Inactivated Comments 07/30/2013 11:08 AM 07/30/2013 7:56 PM Care Teams Home Economics Expert Relationship Specialty Start Date End Date Provider, None [place] PCP - General 02/03/24
--- OUTSIDE RECORDS SUMMARY | 2024-10-27 23:32 | XMS_ITS | Encounter Summary ---
Author Organization [facility] Address [address] [place] [address] Phone Care Team Providers Care Dress Operator Name Role Phone Identified, No Provider Primary Care Provider Un available Reason for Visit * Reason Onset Date Comments Clinical SX During Covid-19 Outbreak 12/08/2020 Encounter Details Date Type Department Care Team ([facility] Contact Info) Description 12/08/2020 Telephone [facility] Pt Support and Access [facility] Appointment Request [address] [place] [address] Identified, No Provider Clinical SX During Covid-19 Outbreak Social History Tobacco Use Types Packs/Day Years Used Date Smoking Tobacco: Never Assessed Sex and Gender Information Value Date Recorded Sex Assigned at Not on file 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 COVID Related Symptoms: cough, headache, runny nose and nausea Confirmed Exposure: </no> If yes, date of exposure: and patient advised to wait at least 5 days from exposure date for testing. Pt screened through [facility] COVID guidelines and directed to report to testing site. Patient aware thaton-site clinical staff may pre-screen. documented in this encounter Plan of Treatment Not on file documented as of this encounter Visit Diagnoses Not on filedocumented in this encounter Care Teams Dress Operator Relationship Specialty Start Date End Date Identified, No Provider PCP - General 10/01/24 documented as of this encounter
[2024-10-27 23:54] LABS: Hematocrit 45.7 % (42.0-52.0); Hemoglobin 16.0 g/dL (14.0-18.0); Immature Granulocyte Percent A 0.7 % (0-0.5); Lymphocytes Absolute Auto 2.96 K/mm3 (0.9-3.2); Mean Corpuscular HGB Conc 35.0 g/dl (32-36); Mean Corpuscular Hemoglobin 31.5 pg (26-34); Mean Corpuscular Volume 90.0 fl (80-100); Nucleated Red Blood Cells Absolute Auto 0.000 K/mm3 (0.0-0.012); Nucleated Red Blood Cells Perc 0.0 % (0.0-0.2); Platelet Count Result 264 k/mm3 (150-375); Red Blood Count 5.08 M/mm3 (4.6-6.20); White Blood Count 10.7 K/mm3 (4.5-10.0)
[2024-10-28 00:14] LABS: INR 1.0; Prothrombin Time 13.1 Seconds (11.1-14.7)
[2024-10-28 00:15] LABS: Partial Thromboplastin Time 26.1 Seconds (22.3-36.8)
[2024-10-28 00:21] LABS: Anion Gap 10 mmol/L (4-12); Blood Urea Nitrogen 14 mg/dL (9-20); Calcium 9.4 mg/dL (8.4-10.2); Carbon Dioxide 26 mmol/L (22-30); Chloride 99 mmol/L (98-107); Estimated CRCL calculation 136 ml/min; Estimated Glomerular Filt Rate > 60; Glucose 97 mg/dL (65-110); Potassium 3.9 mmol/L (3.4-5.0); Sodium 135 mmol/L (137-145)
[2024-10-28] MEDS: ONDANSETRON INJ 4 MG/2 ML VIAL IV PUSH (00:23)
[2024-10-28] MEDS: MORPHINE SULFATE (*CRX) 4 MG/ML INJ IV PUSH (00:24)
[2024-10-28] MEDS: KETOROLAC 30 MG/ML VIAL (*BKC) IV PUSH (01:50)
[2024-10-28 02:15] VITALS: BP 150/88; PULSE 91; RESP 18; O2SAT 100
[2024-10-28 02:19] VITALS: BP 150/88; PULSE 91; RESP 18; O2SAT 100
== END 2024-10-28 02:22 | disposition home or self-care (01) ==
PROVIDERS: Emergency Provider Physician Assistant
DX: S80.12XA Contusion of left lower leg, initial encounter (principal); W55.22XA Struck by cow, initial encounter
CPT/HCPCS: 36415; 73706; 80048; 85025; 85610; 85730; 96374; 96375; 99284; J1885; J2270; J2405; Q9967